=== PATIENT | female | born 1955 | race Caucasian/White ===

== ENCOUNTER 2018-12-19 07:55 | Day surgery (SDC) | payer BC, OTHER ==
[2018-12-13 13:28] VITALS: BMI 28.9
[2018-12-19 09:18] VITALS: TEMP 98.2
[2018-12-19 09:44] VITALS: BP 112/64; PULSE 72
== END 2018-12-19 10:04 | disposition home or self-care (01) ==
LOC: FASU-ENDO 07:55
PROVIDERS: ATTEND Internal Medicine Gastroenterology
PROC: 0DBN8ZX Excision of Sigmoid Colon, Via Natural or Artificial Opening Endoscopic, Diagnostic (ICD-10-PCS; principal; 2018-12-19 08:48)
DX: Z86.010 Personal history of colon polyps (principal); D12.5 Benign neoplasm of sigmoid colon; K63.5 Polyp of colon; K57.30 Diverticulosis of large intestine without perforation or abscess without bleeding; Z80.0 Family history of malignant neoplasm of digestive organs; Z83.71 Family history of colonic polyps
CPT/HCPCS: 82962

== ENCOUNTER 2020-11-17 06:54 | Day surgery (SDC) | payer BC ==
[2020-11-11 12:22] VITALS: BMI 28.3
[2020-11-17] MEDS: CYCLOPENTOLATE 2% OPHTH SOLN 2 ML BOTTLE ONE ×3 (07:15→07:25)
[2020-11-17] MEDS: PHENYLEPHRINE 2.5% OPHTH SOLN 15 ML BOTTLE ONE ×3 (07:15→07:25)
[2020-11-17] MEDS: CIPROFLOXACIN 0.3% EYE DROPS 5 ML BOTTLE ONE ×3 (07:15→07:25)
[2020-11-17] MEDS: TROPICAMIDE 1% OPHTH SOLN 15 ML BOTTLE ONE ×3 (07:15→07:25)
[2020-11-17] MEDS ORDERED: BSS (NA/CA/MG/K) BALANCED SALT SOLUTION OPHTH SOLN 15 ML BOTTLE ONE (08:44)
[2020-11-17] MEDS ORDERED: NEO/POLYMYX B SULF/DEXAMETH OPHTHALMIC 5ML BOTTLE ONE (08:44)
[2020-11-17] MEDS ORDERED: MIDAZOLAM HCL 2 MG/2 ML SINGLE DOSE VIAL ONE (08:44)
[2020-11-17] MEDS ORDERED: CARBACHOL 0.01% INTRA-OCULAR 1.5 ML VIAL ONE (08:44)
[2020-11-17] MEDS ORDERED: TETRACAINE 0.5% OPHTH SOLN 2 ML BOTTLE ONE (08:44)
[2020-11-17] MEDS ORDERED: LIDOCAINE 1% P/F 10 MG/ML VIAL ONE (08:44)
[2020-11-17] MEDS ORDERED: ONDANSETRON 4 MG/2 ML VIAL ONE (09:35)
[2020-11-17 10:26] VITALS: TEMP 98.2
[2020-11-17 10:33] VITALS: BP 101/68; PULSE 74
== END 2020-11-17 10:20 | disposition home or self-care (01) ==
LOC: FASU 06:54
PROVIDERS: ATTEND Ophthalmology
PROC: 08RJ3JZ Replacement of Right Lens with Synthetic Substitute, Percutaneous Approach (ICD-10-PCS; principal; 2020-11-17 09:04)
DX: H26.8 Other specified cataract (principal)
CPT/HCPCS: 82962

== ENCOUNTER 2022-09-13 07:34 | Day surgery (SDC) | payer OTHER, BC ==
[2022-09-11 08:14] VITALS: BMI 27.1
[2022-09-13] MEDS ORDERED: LIDOCAINE HCL/PF 2% SDV 5ML VIAL ONE (07:40)
[2022-09-13] MEDS ORDERED: PROPOFOL 120 ML ONE (07:40)
[2022-09-13 08:02] VITALS: BP 126/71; PULSE 77; RESP 19; TEMP 97.8
== END 2022-09-13 08:40 | disposition home or self-care (01) ==
LOC: FASU-ENDO 07:34
PROVIDERS: ATTEND Internal Medicine Gastroenterology
PROC: 0DJD8ZZ Inspection of Lower Intestinal Tract, Via Natural or Artificial Opening Endoscopic (ICD-10-PCS; principal; 2022-09-13)
DX: Z53.8 Procedure and treatment not carried out for other reasons (principal)
CPT/HCPCS: 82962

== ENCOUNTER 2022-09-14 07:24 | Day surgery (SDC) | payer OTHER, BC ==
[2022-09-13 16:24] VITALS: BMI 27.1
[2022-09-14] MEDS ORDERED: PROPOFOL 40 ML ONE (07:56)
[2022-09-14] MEDS ORDERED: LIDOCAINE HCL/PF 2% SDV 5ML VIAL ONE (07:56)
[2022-09-14 11:49] VITALS: BP 105/69; PULSE 79; RESP 69; TEMP 97.4
== END 2022-09-14 09:15 | disposition home or self-care (01) ==
LOC: FASU-ENDO 07:24
PROVIDERS: ATTEND Internal Medicine Gastroenterology
PROC: 0DJD8ZZ Inspection of Lower Intestinal Tract, Via Natural or Artificial Opening Endoscopic (ICD-10-PCS; principal; 2022-09-14 08:13)
DX: Z12.11 Encounter for screening for malignant neoplasm of colon (principal); Z86.010 Personal history of colon polyps; Z80.0 Family history of malignant neoplasm of digestive organs
CPT/HCPCS: 82962

== ENCOUNTER 2024-01-30 09:36 | Day surgery (SDC) | payer OTHER, BC ==
[2024-01-17 14:44] VITALS: BMI 26.9
[2024-01-30 10:05] VITALS: RESP 16
[2024-01-30] MEDS: CIPROFLOXACIN 0.3% EYE DROPS 5 ML BOTTLE ONE (10:05)
[2024-01-30] MEDS: PHENYLEPHRINE 2.5% OPTHALMIC DROP 2ML BOTTLE ONE (10:05)
[2024-01-30] MEDS: TROPICAMIDE 1% OPHTH SOLN 15 ML BOTTLE ONE (10:05)
[2024-01-30] MEDS: CYCLOPENTOLATE 2% OPHTH SOLN 2 ML BOTTLE ONE (10:05)
[2024-01-30] MEDS ORDERED: NEO/POLYMYX B SULF/DEXAMETH OPHTHALMIC 5ML BOTTLE ONE (10:33)
[2024-01-30] MEDS ORDERED: LIDOCAINE 1% P/F 10 MG/ML VIAL ONE (10:33)
[2024-01-30] MEDS ORDERED: BSS (NA/CA/MG/K) BALANCED SALT SOLUTION OPHTH SOLN 15 ML BOTTLE ONE (10:33)
[2024-01-30] MEDS ORDERED: TETRACAINE 0.5% OPHTH SOLN 2 ML BOTTLE ONE (10:33)
[2024-01-30] MEDS ORDERED: CARBACHOL 0.01% INTRA-OCULAR 1.5 ML VIAL ONE (10:33)
[2024-01-30] MEDS ORDERED: MIDAZOLAM HCL 2 MG/2 ML SINGLE DOSE VIAL ONE (11:02)
[2024-01-30 12:22] VITALS: PULSE 74; TEMP 97.3
[2024-01-30 12:33] VITALS: BP 117/81
== END 2024-01-30 12:25 | disposition home or self-care (01) ==
LOC: FASU 09:36
PROVIDERS: ATTEND Ophthalmology
PROC: 08RK3JZ Replacement of Left Lens with Synthetic Substitute, Percutaneous Approach (ICD-10-PCS; principal; 2024-01-30 11:20)
DX: H26.8 Other specified cataract (principal)
CPT/HCPCS: 66984; V2632; 82962